=== PATIENT | female | born 1970 | race Caucasian/White ===

== ENCOUNTER 2021-06-03 18:24 | Emergency (ER) | payer BC ==
[2021-06-03 19:24] LABS: HEMOGLOBIN 15.6 gm/dl (12.3-15.3); RED BLOOD COUNT 4.44 M/UL (4.00-5.10); WHITE BLOOD COUNT 9.7 K/UL (4.5-11.0)
[2021-06-03 19:46] LABS: BUN/CREATININE RATIO 24 (0-10)
[2021-06-03] MEDS ORDERED: MEDROL DOSEPAK 24 MG PO (21:17)
[2021-06-03] MEDS ORDERED: ZOFRAN 4 MG TAB4 MG PO (21:17)
[2021-06-03] MEDS ORDERED: IBUPROFEN600 MG PO (21:17)
== END 2021-06-03 21:27 | disposition home or self-care (01) ==
LOC: ER1 18:24
PROVIDERS: Physician Assistant Medical
DX: B34.9 Viral infection, unspecified (principal); J44.9 Chronic obstructive pulmonary disease, unspecified; R05.9 Cough, unspecified; R11.2 Nausea with vomiting, unspecified; F17.210 Nicotine dependence, cigarettes, uncomplicated; Z20.822 Contact with and (suspected) exposure to COVID-19
CPT/HCPCS: 70450; 80053; 85025; 96374; 96375; 99284; J1200; J1885; J2270; J2765; J2930; U0002